=== PATIENT | female | born 1950 | race Caucasian/White ===

== ENCOUNTER → 2018-06-12 | Outpatient (CLI) | payer OTHER, MEDICARE ==
--- NOTE | 2018-06-13 21:32 | MAM ---
EXAM DESCRIPTION: 3D Screening left : Digital Mammography. CLINICAL HISTORY: 67 years Female SCREENING right breast cancer and mastectomy 2010. Unknown family history of breast cancer. Childbirth. Postmenopausal.. No risk profile due to breast cancer. COMPARISON: None.. No prior reports available. TECHNIQUE: Left CC and MLO projection full-field images, Digital tomosynthesis mammographic technique. Left 2-D MLO image. CAD not utilized. FINDINGS: The breast parenchymal density pattern is: Scattered areas of fibroglandular density. No skin thickening or nipple retraction. Left axillary lymph node. Posterior breast and part of the pectoral muscle are obscured by pacemaker. Small focal calcifications. Focal asymmetry at the 1230 clock position of the middle third of the left breast approximately 6 cm from the nipple. IMPRESSION: BI-RADS CATEGORY: 0 - INCOMPLETE- Need additional imaging evaluation. FOLLOW-UP: Recall for additional imaging: Full-field digital tomosynthesis left breast and targeted left breast ultrasound Written communication concerning the IMPRESSION and Follow-up, will be mailed to the patient and referring health care provider. Electronically signed by: Hang De La Torre MD 06/13/2018 9:31 PM CDT
== END ==
LOC: YCFC.O 08:56
PROVIDERS: ATTEND Family Medicine
DX: Z12.31 Encounter for screening mammogram for malignant neoplasm of breast (principal); I10 Essential (primary) hypertension; R53.83 Other fatigue; E78.00 Pure hypercholesterolemia, unspecified

== ENCOUNTER → 2018-06-27 | Outpatient (CLI) | payer MEDICARE ==
--- NOTE | 2018-06-27 17:17 | US ---
EXAM DESCRIPTION: Breast,Left: Ultrasound CLINICAL HISTORY: 67 yearsFemaleABNORMAL MAMMO. Right breast cancer and mastectomy. COMPARISON: Digital diagnostic tomosynthesis left breast on this visit. Left breast screening digital breast tomosynthesis 06/12/2018. TECHNIQUE: Transcutaneous scanning of the left breast utilizing montgomery-scale and Doppler modes. Scanning performed by the advertising account executive and Dr. De La Torre. FINDINGS: Scanning of the lateral left breast with emphasis at the 3:00 position 8 cm from the nipple. Make sure of fibroglandular and fatty echotexture. Heterogeneous. Small ductal segments are present. No distinct solid mass or cyst. No parenchymal edema or large calcifications. No overlying skin changes. No abnormal vascularity. IMPRESSION: 1. Bi-Rads Category 2: Benign. 2. Please refer to digital diagnostic tomosynthesis examination and report on the left breast on this visit. The FINDINGS and the FOLLOW-UP plan were reviewed in person with the patient after the examination. Written communication explaining the IMPRESSION and FOLLOW-UP will be mailed to the patient and referring care provider. Electronically signed by: Hang De La Torre MD 06/27/2018 5:16 PM CDT
--- NOTE | 2018-06-29 08:42 | MAM ---
EXAM DESCRIPTION: 3D Diagnostic, Left: Digital Mammography CLINICAL HISTORY: 67 yearsFemaleABN MAMMO focal asymmetry left breast.. Right breast cancer with mastectomy. COMPARISON: Digital screening left breast tomosynthesis 06/12/2018. Targeted left breast ultrasound with this study. TECHNIQUE: Left LM projection full-field images, digital mammographic tomosynthesis technique. Digital 2-D magnification anterior left breast CC projection. CAD not utilized. FINDINGS: The breast parenchymal density pattern is: Scattered areas of fibroglandular density. No skin thickening or nipple retraction scattered bilateral calcifications. Focal asymmetry is not as well demonstrated by the diagnostic images. ULTRASOUND: Scanning of the lateral left breast with emphasis at the 3:00 position 8 cm from the nipple. Make sure of fibroglandular and fatty echotexture. Heterogeneous. Small ductal segments are present. No distinct solid mass or cyst. No parenchymal edema or large calcifications. No overlying skin changes. No abnormal vascularity. IMPRESSION: Benign exam. BIRAD CATEGORY: 2 BENIGN FINDINGS. RECOMMENDATIONS: FOLLOW UP: Return to routine digital left breast screening, one year interval from May 2018. Written communication explaining the IMPRESSION and follow-up, will be mailed to the patient and referring health care provider. According to the [employer], yearly mammograms are recommended starting at age 40 and continuing as long as a woman is in good health. Any breast change noted on a breast self-exam should be reported promptly to the patient's healthcare provider. Breast MRI is recommended for women with an approximately 20-25% or greater lifetime risk of breast cancer, including women with a strong family history of breast or ovarian cancer and women who have been treated for Hodgkin's disease. A negative mammographic report should not delay tissue diagnosis in patients with significant clinical history or physical findings. Extremely dense breast tissue limits the sensitivity of digital mammography. Electronically signed by: Hang De La Torre MD 06/29/2018 8:40 AM CDT
== END ==
LOC: MAMMO 13:00
PROVIDERS: ATTEND Family Medicine
DX: R92.8 Other abnormal and inconclusive findings on diagnostic imaging of breast (principal)
CPT/HCPCS: 76641; 77065; G0279